=== PATIENT | female | born 1975 | race American Indian/Alaskan Native ===

== ENCOUNTER 2021-05-07 20:45 | Emergency (ER) | payer BC, OTHER ==
[2021-05-07] MEDS ORDERED: ONDANSETRON 4 MG/2 ML INJ IV ONE (22:22)
[2021-05-07] MEDS ORDERED: KETOROLAC 30 MG/1 ML INJ IV ONE (22:22)
[2021-05-07 22:23] VITALS: BP 154/84
[2021-05-07 22:53] LABS: Bilirubin,Urine NEG (Negative); Blood,Urine MOD (Negative); Color,Urine Yellow (Yellow)
[2021-05-07 23:23] LABS: Basophils % (Auto) 0.4 % (0.0-1.8); Eosinophils # (Auto) 0.2 K/mm3 (0.0-0.4); Eosinophils % (Auto) 1.7 % (0.0-4.3); Lymphocytes # (Auto) 3.9 K/mm3 (1.2-5.4); Lymphocytes % (Auto) 43.1 % (13.4-35.0); Mean Corpuscular HGB Conc 30 % (30-34); Mean Corpuscular Volume 81 fl (79-97); Monocytes # (Auto) 0.6 K/mm3 (0.0-0.8); Monocytes % (Auto) 7.2 % (0.0-7.3); Platelet Count 287 K/mm3 (140-440); Red Blood Count 3.98 M/mm3 (3.65-5.03); Red Cell Distribution Width 17.6 % (13.2-15.2)
[2021-05-07 23:24] LABS: Hematocrit 32.1 % (30.3-42.9); Hemoglobin 9.6 gm/dl (10.1-14.3)
[2021-05-08 00:07] LABS: Alanine Aminotransferase 8 units/L (7-56); Albumin 4.2 g/dL (3.9-5); BUN/Creatinine Ratio 19; Blood Urea Nitrogen 15 mg/dL (7-17); Hemolysis Index 0
--- NOTE | 2021-05-08 01:43 | Emergency Department Report ---
ED Abdominal Pain HPI - General Chief Complaint: Abdominal Pain Stated Complaint: RT LEG PAIN/ABD PAIN/SOB Source: patient Mode of arrival: Ambulatory Limitations: No Limitations - History of Present Illness Initial Comments: Patient is a 45-year-old -[place] female with a history of asthma, GERD and morbid obesity presents to the ED with complaint of persistent left lower quadrant abdominal pain intermittently for the last 2 months. Patient states that in the last 1 week, the pain has been persistent with nausea. Patient denies vomiting, chest pain, shortness of breath, traumatic injury, dysuria, urinary frequency and urgency, vaginal bleeding, vaginal discharge, fever and chills, low back pain, diarrhea, dyspareunia, numbness and tingling or weakness of lower extremities bilaterally. MD Complaint: abdominal pain (LLQ area) -: Gradual, month(s) (2) Location: LLQ Radiation: none Migration to: no migration Severity: moderate Severity scale (0 -10): 6 Quality: cramping, aching, sharp Consistency: intermittent Worsens With: nothing Associated Symptoms: denies other symptoms, nausea. denies: vomiting, diarrhea, fever, chills, dysuria, hematemesis, hematochezia, melena, hematuria, anorexia, syncope - Related Data Previous Rx's Medication Instructions Recorded Last Taken Type Dicyclomine [Bentyl] 20 mg PO Q6H PRN #24 tablet 05/08/21 Unknown Rx Naproxen 500 mg PO Q12H PRN #20 tab 05/08/21 Unknown Rx Ondansetron [Zofran Odt] 4 mg PO Q8HR PRN #15 tab.rapdis 05/08/21 Unknown Rx Allergies Allergy/AdvReac Type Severity Reaction Status Date / Time lactose AdvReac Unknown Verified 05/07/21 23:23 ED Review of Systems ROS: Stated complaint: RT LEG PAIN/ABD PAIN/SOB Other details as noted in HPI Constitutional: denies: chills, fever Eyes: denies: eye pain, eye discharge, vision change ENT: denies: ear pain, throat pain Respiratory: denies: cough, shortness of breath, wheezing Cardiovascular: denies: chest pain, palpitations Endocrine: no symptoms reported Gastrointestinal: abdominal pain (LLQ), nausea. denies: vomiting, diarrhea Genitourinary: denies: urgency, dysuria, discharge Musculoskeletal: denies: back pain, joint swelling, arthralgia Skin: denies: rash, lesions Neurological: denies: headache, weakness, paresthesias Psychiatric: denies: anxiety, depression Hematological/Lymphatic: denies: easy bleeding, easy bruising ED Past Medical Hx - Past Medical History Previous Medical History?: Yes Hx Hypertension: No Hx Heart Attack/AMI: No Hx Diabetes: No Hx GERD: Yes Hx Liver Disease: No Hx Renal Disease: No Hx Sickle Cell Disease: No Hx Arthritis: Yes Hx Seizures: No Hx Asthma: Yes (WELL CONTROLLED- NO MEDS since gastric sleeve) - Surgical History Past Surgical History?: Yes Additional Surgical History: T&A, gastric sleeve (2013) - Social History Smoking Status: Never Smoker Substance Use Type: None - Medications Home Medications: Home Medications Medication Instructions Recorded Confirmed Last Taken Type Dicyclomine [Bentyl] 20 mg PO Q6H PRN #24 tablet 05/08/21 Unknown Rx Naproxen 500 mg PO Q12H PRN #20 tab 05/08/21 Unknown Rx Ondansetron [Zofran Odt] 4 mg PO Q8HR PRN #15 tab.rapdis 05/08/21 Unknown Rx ED Physical Exam - General Limitations: No Limitations General appearance: alert, in no apparent distress - Head Head exam: Present: atraumatic, normocephalic, normal inspection - Eye Eye exam: Present: normal appearance, PERRL, EOMI Pupils: Present: normal accommodation - ENT ENT exam: Present: normal exam, normal orophraynx, mucous membranes moist, TM's normal bilaterally, normal external ear exam - Neck Neck exam: Present: normal inspection, full ROM. Absent: tenderness - Respiratory Respiratory exam: Present: normal lung sounds bilaterally. Absent: respiratory distress, wheezes, rales, stridor, chest wall tenderness, accessory muscle use, decreased breath sounds - Cardiovascular Cardiovascular Exam: Present: regular rate, normal rhythm, normal heart sounds. Absent: systolic murmur, diastolic murmur, rubs, gallop - GI/Abdominal GI/Abdominal exam: Present: soft, tenderness (Palpable mild LLQ tenderness), normal bowel sounds. Absent: guarding, rebound, hyperactive bowel sounds, hypoactive bowel sounds, organomegaly - Extremities Exam Extremities exam: Present: normal inspection, full ROM, normal capillary refill. Absent: tenderness - Back Exam Back exam: Present: normal inspection, full ROM. Absent: tenderness, CVA tenderness (R), CVA tenderness (L), muscle spasm, paraspinal tenderness, vert ebral tenderness - Neurological Exam Neurological exam: Present: alert, oriented X3, CN II-XII intact, normal gait, reflexes normal - Psychiatric Psychiatric exam: Present: normal affect, normal mood, anxious - Skin Skin exam: Present: warm, dry, intact, normal color. Absent: rash ED Course Vital Signs 05/07/21 05/07/21 05/07/21 21:59 22:11 23:23 Temperature 98.6 F Pulse Rate 76 76 Respiratory 18 16 Rate Blood Pressure 154/84 O2 Sat by Pulse 100 Oximetry ED Medical Decision Making - Lab Data Result diagrams: 05/07/21 22:46 05/07/21 22:46 - Radiology Data Radiology results: report reviewed, image reviewed Abdomen pelvis CT scan with IV contrast showed colonic diverticulosis without evidence of diverticulitis. There is no other acute findings within the abdomen or pelvis. - Medical Decision Making This is a 45-year-old -[place] female with a history of asthma, GERD and morbid obesity presents to the ED with complaint of persistent left lower quadrant abdominal pain intermittently for the last 2 months. Patient states that in the last 1 week, the pain has been persistent with nausea. In the ED, patient is alert and oriented x3 and is not in any distress. Patient was treated for pain in the ED and was given antiemetics. Lab test results were reviewed and are all nonactionable including urinalysis. The abdomen pelvis CT scan with IV contrast showed colonic diverticulosis without evidence of diverticulitis. There is no other acute findings within the abdomen or pelvis. Patient was treated for pain in the ED. On reevaluation, patient's pain is well controlled medication. Patient will discharge home on medications and advised to follow-up with her primary care physician in 5 to 7 days for reevaluation. Return to the ED immediately if symptoms get worse. - Differential Diagnosis Diverticulitis; colitis; constipation; UTI; kidney stone; Critical care attestation.: If time is entered above; I have spent that time in minutes in the direct care of this critically ill patient, excluding procedure time. ED Disposition Clinical Impression: Acute abdominal pain in left lower quadrant Disposition: HOME / SELF CARE / HOMELESS Is pt being admited?: No Does the pt Need Aspirin: No Condition: Stable Instructions: Abdominal Pain (ED), Abdominal Pain, Adult, [id number] Additional Instructions: All lab test results were reviewed and are all nonactionable. Therefore take medication to plenty of fluids and follow-up with your primary care physician in 5 to 7 days for reevaluation. Return to the ED immediately if symptoms get worse. Prescriptions: Dicyclomine [Bentyl] 20 mg PO Q6H PRN #24 tablet PRN Reason: abdominal pain Naproxen 500 mg PO Q12H PRN #20 tab PRN Reason: Pain , Severe (7-10) Ondansetron [Zofran Odt] 4 mg PO Q8HR PRN #15 tab.rapdis PRN Reason: Nausea Referrals: [facility] [Provider Group] - 7-10 days Time of Disposition: 01:43 Print Language: TURKISH
--- NOTE | 2021-05-10 08:27 | Cat Scan Report ---
CT ABDOMEN AND PELVIS WITH CONTRAST INDICATION / CLINICAL INFORMATION: LLQ abdominal pain. TECHNIQUE: Axial CT images were obtained through the abdomen and pelvis after 100 cc Omni 300 IV cont rast. All CT scans at this location are performed using CT dose reduction for ALARA by means of auto mated exposure control. COMPARISON: None available. FINDINGS: LOWER CHEST: No significant abnormality of the imaged chest. LIVER: No significant abnormality. GALLBLADDER: No significant abnormality. BILE DUCTS: No significant abnormality. SPLEEN: No significant abnormality. PANCREAS: Subcentimeter focus of fat attenuation within the pancreatic body compatible with lipoma. ADRENALS: No significant abnormality. RIGHT KIDNEY / URETER: No significant abnormality. LEFT KIDNEY / URETER: No significant abnormality. STOMACH / DUODENUM / SMALL BOWEL: Prior bariatric surgery. COLON: Diverticulosis without acute inflammation. APPENDIX: No significant abnormality. PERITONEUM: No free air or free fluid are present within the abdomen or pelvis. LYMPH NODES: No significant adenopathy. AORTA / ARTERIES: No significant abnormality. IVC / VEINS: No significant abnormality. URINARY BLADDER: No significant abnormality. REPRODUCTIVE ORGANS: Enlarged fibroid uterus with partially calcified exophytic fibroid projecting felix periorly from the left upper fundus. ADDITIONAL ABDOMINAL/PELVIC FINDINGS: None. SKELETAL SYSTEM: No significant abnormality. IMPRESSION: 1. Colonic diverticulosis without evidence of diverticulitis. 2. No acute findings within the abdomen or pelvis. Signer Name: Gideon Samayoa II, MD Signed: 05/08/2021 12:40 AM Workstation Name: [id number]
== END 2021-05-08 02:30 | disposition home or self-care (01) ==
LOC: ED 20:45
DX: R10.32 Left lower quadrant pain (principal); R11.0 Nausea; K21.9 Gastro-esophageal reflux disease without esophagitis; Z88.8 Allergy status to other drugs, medicaments and biological substances; Z79.899 Other long term (current) drug therapy
CPT/HCPCS: 36415; 74177; 80053; 81001; 83690; 84703; 85025; 96374; 96375; 99284; J1885; J2405; Q9967